=== PATIENT | male | born 1950 | race Caucasian/White ===

== ENCOUNTER → 2017-02-14 | Outpatient (CLI) | payer BC ==
[~2017-02-14] MED LIST: ASCA500 PO; ASPEC325 PO; B-COCAP2 PO; CHOL20009 PO; CMD10 PO; GLUC1TAB8 PO; METH2.5T PO; METHO; MULT-506 PO; OMEG10007 PO; PANT40TA PO; PRAM1TAB47 PO; PRED1SUS3; PRED1SUS3 OPR; ROSU5TAB PO; SYN150 PO; VTMB12 PO; WARF10TA4 PO; [UNRECOGNIZED DRUG - CODE]
[2017-02-14 10:05] LABS: ESTIMATED AVERAGE GLUCOSE 117 mg/dl; HA1C FLAG Normal (Normal)
[2017-02-14 10:20] LABS: THYROID STIMULATING HORMONE 0.624 uIu/ml (0.300-4.500)
== END | disposition home or self-care (01) ==
LOC: C.LAB 06:41
PROVIDERS: ATTEND Internal Medicine Endocrinology, Diabetes & Metabolism
DX: E78.5 Hyperlipidemia, unspecified (principal); E06.3 Autoimmune thyroiditis; E03.9 Hypothyroidism, unspecified

== ENCOUNTER → 2017-11-08 | Outpatient (CLI) | payer BC ==
[~2017-11-08] MED LIST changes: -ASCA500 PO; -ASPEC325 PO; -B-COCAP2 PO; -CMD10 PO; +FOLI1TAB8 PO; +GLUC10007 PO; -GLUC1TAB8 PO; +LEVO125T5 PO; +MAGN400T6 PO; -PRED1SUS3; -VTMB12 PO; -[UNRECOGNIZED DRUG - CODE]
== END | disposition home or self-care (01) ==
LOC: C.PATHSPEC 13:40
PROVIDERS: ATTEND Dermatology
DX: L82.1 Other seborrheic keratosis (principal); D22.5 Melanocytic nevi of trunk